=== PATIENT | male | born 1990 | race African-American/Black ===

== ENCOUNTER 2016-07-17 12:37 | Emergency (ER) | payer SELFPAY ==
--- NOTE | 2016-07-17 12:48 | ER Document Report ---
ED Medical Screen (RME) - General Stated Complaint: PAIN IN ARMPIT Time seen by provider: 12:48 Mode of Arrival: Ambulatory Information source: Patient Notes: 25-year-old male with a history of abscess under the right axilla started having swelling and pain to the area for 1 week. It is draining now after he popped it last night. I have greeted and performed a rapid initial assessment of this patient. A comprehensive ED assessment, evaluation of the patient, analysis of test results , and completion of the medical decision making process will be conducted by additional ED providers. TRAVEL OUTSIDE OF THE [place] IN LAST 30 DAYS: No - Related Data Allergies/Adverse Reactions: No Known Allergies Allergy (Verified 07/17/16 12:49) Past Medical History - Past Medical History Cardiac Medical History: Reports: Hx Hypertension - untreated Pulmonary Medical History: Reports: Hx Asthma - as infant Past Surgical History: Reports: Hx Appendectomy - Immunizations Immunizations up to date: Yes Hx Diphtheria, Pertussis, Tetanus Vaccination: Yes Physical Exam - Vital signs Vitals: Temp Pulse Resp BP Pulse Ox 97.7 F 60 14 153/113 H 100 07/17/16 12:44 07/17/16 12:44 07/17/16 12:44 07/17/16 12:44 07/17/16 12:44 Course - Vital Signs Vital signs: Temp Pulse Resp BP Pulse Ox 97.7 F 60 14 153/113 H 100 07/17/16 12:44 07/17/16 12:44 07/17/16 12:44 07/17/16 12:44 07/17/16 12:44
[2016-07-17] MEDS ORDERED: IBUPROFEN 800 MG TABLET PO ONE (14:02)
[2016-07-17] MEDS ORDERED: LIDOCAINE 1% INJ-PF (10 MG/ML) 30 ML SDV INJ ONE (14:29)
--- NOTE | 2016-07-17 15:04 | ER Document Report ---
ED General - General Chief Complaint: Abscess Stated Complaint: PAIN IN ARMPIT Time seen by provider: 14:30 Mode of Arrival: Ambulatory Information source: Patient Notes: 25-year-old male one-week history of pain and redness and swelling underneath right arm. Patient reports he had a 90 for an abscess there several months ago and thinks it has returned. He reports that he was able to squeeze some pus out of the area last night and thinks the swelling has gone down since then but has not resolved. He reports being in normal state of health otherwise recently. Physical Exam: General: Alert, appears well. HEENT: Normocephalic. Atraumatic. Oropharynx clear. Neck: Supple. Non-tender. Respiratory: No respiratory distress. Clear and equal breath sounds bilaterally. Cardiovascular: Regular rate and rhythm. Abdominal: Normal Inspection. Soft, non-tender. No distension. Normal Bowel Sounds. Back: Non-tender. No deformity or step off. Extremities: Moves all four extremities. Upper extremities: Normal inspection. Non-tender. Normal color. Normal ROM. Normal temperature. Lower extremities: Normal inspection. Non-tender. No edema. Normal color. Normal ROM. Normal temperature. Neurological: Speech clear mentation normal Psychological: Normal affect. Normal Mood. Skin: Warm. Dry. Normal color. Right axilla has a linear area of erythema redness swelling induration and tenderness consistent with abscess. The central 5 mm of this area expresses a mixture of serous and purulent material with mild palpation. TRAVEL OUTSIDE OF THE [place] IN LAST 30 DAYS: No - Related Data Allergies/Adverse Reactions: No Known Allergies Allergy (Verified 07/17/16 12:49) Past Medical History - General Information source: Patient - Social History Smoking Status: Current Every Day Smoker Family History: Reviewed & Not Pertinent Patient has suicidal ideation: No Patient has homicidal ideation: No - Past Medical History Cardiac Medical History: Reports: Hx Hypertension - untreated Pulmonary Medical History: Reports: Hx Asthma - as Renal/ Medical History: Denies: Hx Peritoneal Dialysis Past Surgical History: Reports: Hx Appendectomy - Immunizations Immunizations up to date: Yes Hx Diphtheria, Pertussis, Tetanus Vaccination: Yes Review of Systems - Review of Systems Constitutional: denies: Chills, Fever EENT: denies: Ear pain, Throat pain Cardiovascular: denies: Chest pain Respiratory: denies: Cough Gastrointestinal: denies: Abdominal pain, Nausea, Vomiting Genitourinary: denies: Burning Musculoskeletal: denies: Back pain Skin: See HPI Hematologic/Lymphatic: Swollen glands Neurological/Psychological: denies: Weakness, Numbness Physical Exam - Vital signs Vitals: Temp Pulse Resp BP Pulse Ox 97.7 F 60 14 153/113 H 100 07/17/16 12:44 07/17/16 12:44 07/17/16 12:44 07/17/16 12:44 07/17/16 12:44 Course - Re-evaluation Re-evalutation: 07/17/16 15:07 Right axillary abscess drained without difficulty patient will return in 2 days for packing removal and possible replacement. Of concerns about a coexisting cellulitis and he'll be placed on Keflex and Bactrim for that - Vital Signs Vital signs: Temp Pulse Resp BP Pulse Ox 97.7 F 60 14 153/113 H 100 07/17/16 12:44 07/17/16 12:44 07/17/16 12:44 07/17/16 12:44 07/17/16 12:44 Procedures - Incision and Drainage Right Shoulder Type: Simple Anesthetic type: 1% Lidocaine mL's of anesthetic: 2 Blade size: 11 I&D procedure: Betadine prep applied, Shurclens applied, Iodoform packing placed Incision Method: Incision made by scalpel Amount/type of drainage: 2cc thick purulent material Notes: 07/17/16 15:06 After local anesthetic and sterile prep incision was made overlying the area where drainage was already present. Incision was enlarged and abscess cavity was probed and explored with blunt dissection with return of purulent material and blood. Abscess cavity seems to track superiorly this area was also probed packing was then placed. Discharge - Discharge Clinical Impression: Abscess Condition: Stable Disposition: HOME, SELF-CARE Instructions: Post Incision and Drainage, Abscess ([facility]) Additional Instructions: Return to [facility] emergency department in 2 days for packing removal Prescriptions: Cephalexin Monohydrate [Keflex 500 mg Capsule] 500 mg PO QID #40 capsule Sulfamethoxazole/Trimethoprim [Bactrim Ds Tablet] 1 each PO BID #20 tablet
[2016-07-17 15:19] VITALS: BP 164/102
== END 2016-07-17 15:30 | disposition home or self-care (01) ==
LOC: ER 12:37
PROC: 0H9BXZZ Drainage of Right Upper Arm Skin, External Approach (ICD-10-PCS; principal; 2016-07-17)
DX: L02.413 Cutaneous abscess of right upper limb (principal); F17.210 Nicotine dependence, cigarettes, uncomplicated
CPT/HCPCS: 99283; 10060; J3490

== ENCOUNTER 2016-07-19 15:27 | Emergency (ER) | payer SELFPAY ==
--- NOTE | 2016-07-19 15:32 | ER Document Report ---
ED Medical Screen (RME) - General Stated Complaint: WOUND CHECK Notes: Patient is a 25-year-old male who presents to the emergency department for wound check. Have the abscess drained 2 days ago. Needs packing removed and evaluated. I have greeted and performed a rapid initial assessment of this patient. A comprehensive ED assessment and evaluation of the patient, analysis of test results and completion of the medical decision making process will be conducted by additional ED providers. TRAVEL OUTSIDE OF THE [place] IN LAST 30 DAYS: No - Related Data Allergies/Adverse Reactions: No Known Allergies Allergy (Verified 07/19/16 15:30) Past Medical History - Past Medical History Cardiac Medical History: Reports: Hx Hypertension - untreated Pulmonary Medical History: Reports: Hx Asthma - as infant Renal/ Medical History: Denies: Hx Peritoneal Dialysis Past Surgical History: Reports: Hx Appendectomy - Immunizations Immunizations up to date: Yes Hx Diphtheria, Pertussis, Tetanus Vaccination: Yes
[2016-07-19 17:25] VITALS: BP 162/98
--- NOTE | 2016-07-19 17:25 | ER Document Report ---
ED Suture/Wound Recheck - General Chief Complaint: Wound Recheck Stated Complaint: WOUND CHECK Time seen by provider: 17:00 Mode of Arrival: Ambulatory Information source: Patient Notes: 25-year-old male presents to ED for recheck of the abscess to his right axilla. He had an I&D done 2 days ago with packing in these to be removed and replaced TRAVEL OUTSIDE OF THE [place] IN LAST 30 DAYS: No - HPI Previous ED treatment: I&D of abscess Quality of pain: Sharp Severity: Moderate Pain Level: 3 Symptoms since procedure: Drainage Exacerbated by: Movement Relieved by: Denies - Related Data Allergies/Adverse Reactions: acetaminophen [From Percocet] Allergy (Verified 07/19/16 15:33) oxycodone [From Percocet] Allergy (Verified 07/19/16 15:33) Past Medical History - General Information source: Patient - Social History Smoking Status: Never Smoker Cigarette use (# per day): No Chew tobacco use (# tins/day): No Smoking Education Provided: No Frequency of alcohol use: None Drug Abuse: None Family History: Reviewed & Not Pertinent Patient has suicidal ideation: No Patient has homicidal ideation: No - Past Medical History Cardiac Medical History: Reports: Hx Hypertension - untreated Pulmonary Medical History: Reports: Hx Asthma - as EENT Medical History: Reports: None Neurological Medical History: Reports: None Endocrine Medical History: Reports: None Renal/ Medical History: Reports: None Malignancy Medical History: Reports None GI Medical History: Reports: None Musculoskeltal Medical History: Reports None Skin Medical History: Reports None Psychiatric Medical History: Reports: None Traumatic Medical History: Reports: None Infectious Medical History: Reports: None Past Surgical History: Reports: Hx Appendectomy - Immunizations Immunizations up to date: Yes Hx Diphtheria, Pertussis, Tetanus Vaccination: Yes Review of Systems - Review of Systems Constitutional: No symptoms reported EENT: No symptoms reported Cardiovascular: No symptoms reported Respiratory: No symptoms reported Gastrointestinal: No symptoms reported Genitourinary: No symptoms reported Male Genitourinary: No symptoms reported Musculoskeletal: No symptoms reported Skin: Other - Recheck abscess to right axilla Hematologic/Lymphatic: No symptoms reported Neurological/Psychological: No symptoms reported Physical Exam - Vital signs Vitals: Temp Pulse Resp BP Pulse Ox 97.7 F 77 16 143/102 H 99 07/19/16 15:32 07/19/16 15:32 07/19/16 15:32 07/19/16 15:32 07/19/16 15:32 Interpretation: Normal Notes: I rechecked vital signs blood pressure was 162/98 O2 sat was 99% pulse was 57 temperature was 97.9 - General General appearance: Appears well, Alert - HEENT Head: Normocephalic, Atraumatic Eyes: Normal Pupils: PERRL - Respiratory Respiratory status: No respiratory distress Chest status: Nontender Breath sounds: Normal Chest palpation: Normal - Cardiovascular Rhythm: Regular Heart sounds: Normal auscultation Murmur: No - Abdominal Inspection: Normal Distension: No distension Bowel sounds: Normal Tenderness: Nontender Organomegaly: No organomegaly - Back Back: Normal, Nontender - Extremities General upper extremity: Normal inspection, Nontender, Normal color, Normal ROM , Normal temperature General lower extremity: Normal inspection, Nontender, Normal color, Normal ROM , Normal temperature, Normal weight bearing. No: Danny's sign - Neurological Neuro grossly intact: Yes Cognition: Normal Orientation: AAOx4 [place] Coma Scale Eye Opening: Spontaneous [place] Coma Scale Verbal: Oriented [place] Coma Scale Motor: Obeys Commands [place] Coma Scale Total: 15 Speech: Normal Motor strength normal: LUE, RUE, LLE, RLE Sensory: Normal - Psychological Associated symptoms: Normal affect, Normal mood - Skin Skin Temperature: Warm Skin Moisture: Dry Skin Color: Normal Skin irregularity: Abscess - Right axilla. Still open from a couple days ago still has copious amounts of drainage Course - Re-evaluation Re-evalutation: 07/19/16 17:26 Abscess to right axilla irrigated with 30 mL of normal saline, repacked with 1/ 4 inch iodoform gauze. Dressed with sterile gauze and tape. Patient instructed to follow-up in 48-72 hours to have this reexamined and possibly repacked. Patient instructed that he can follow up with his primary doctor or at the emergency room to have this procedure done. Patient instructed to redress the wound at least daily and any time it is soiled. - Vital Signs Vital signs: Temp Pulse Resp BP Pulse Ox 97.9 F 57 L 16 162/98 H 99 07/19/16 17:20 07/19/16 17:20 07/19/16 15:32 07/19/16 17:20 07/19/16 17:20 Discharge - Discharge Clinical Impression: Abscess re-check Condition: Stable Disposition: HOME, SELF-CARE Additional Instructions: ABSCESS: You have an abscess (boil). This a pus-forming infection, usually due to staph. Some boils may be left to drain on their own, but most require lancing. From the time the tender lump first appears, it may be three or four days before the abscess is ready to lanie. Local heat and rest help at this stage of treatment. An antibiotic may prevent spread of the infection. Once the abscess is opened, packing may be placed into it. This is done so pus is not sealed inside by premature closure of the cavity. The packing will be removed at your follow-up visit or you may be advised to remove it yourself at home. Sometimes this packing must be replaced a few times during healing. The wound will heal with surprisingly little scar. Depending on the size and location of an abscess, healing can take one to four weeks. You may shower and wash the area around the incision site two or three times a day. Antibiotics may be prescribed, but are usually not necessary after an abscess has been drained. If you develop fever, chills, worsening pain, or increasing swelling in the area, call the doctor or return immediately. Continue your medications as prescribed. Return to emergency room or your primary doctor to have wound rechecked and possibly repacked in 2-3 days. FOLLOW-UP CARE: Most simple abscesses will not require a follow up visit. If you had packing placed in the abscess, remove it as instructed by the physician. If you have been referred to a physician for follow-up care, call the physicians office for an appointment as you were instructed or within the next two days. If you experience worsening or a significant change in your symptoms, return to the Emergency Department at any time for re-evaluation. Forms: Elevated Blood Pressure, Return to Work Referrals: NIC NOLEN MD [Primary Care Provider] - Follow up as needed
== END 2016-07-19 18:05 | disposition home or self-care (01) ==
LOC: ER 15:27
DX: L02.411 Cutaneous abscess of right axilla (principal)
CPT/HCPCS: 99282

== ENCOUNTER 2017-05-20 05:46 | Emergency (ER) | payer OTHER ==
[2017-05-20] MEDS ORDERED: IBUPROFEN 800 MG TABLET PO ONE (06:20)
[2017-05-20] MEDS ORDERED: DIPH/PERTUSS(ACELL)/TETANUS VAC/PF 0.5 ML SYR (>=10YO) IM ONE (06:20)
[2017-05-20] MEDS ORDERED: ONDANSETRON ODT 4 MG TAB (6 TAB/ER DISP) PO PRN (06:21)
[2017-05-20] MEDS ORDERED: HYDROCODONE/ACETAMINOPHEN 5-325 MG (6 TAB/ER DISP) PO PRN (06:21)
[2017-05-20] MEDS ORDERED: BACITRACIN ZINC OINTMENT 15 GM TP ONE (06:21)
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
[2017-05-20 07:02] VITALS: BP 151/102
== END 2017-05-20 07:08 | disposition home or self-care (01) ==
LOC: ER 05:46
DX: T24.212A Burn of second degree of left thigh, initial encounter (principal); X10.0XXA Contact with hot drinks, initial encounter; Y93.89 Activity, other specified; Y92.009 Unspecified place in unspecified non-institutional (private) residence as the place of occurrence of the external cause; I10 Essential (primary) hypertension; Z88.6 Allergy status to analgesic agent; Z88.5 Allergy status to narcotic agent
CPT/HCPCS: 99283; 90471; 90715; J3490

== ENCOUNTER 2017-05-24 11:42 | Emergency (ER) | payer OTHER ==
[2017-05-24] MEDS ORDERED: ONDANSETRON 4 MG TAB.RAPDIS PO ONE (12:22)
[2017-05-24] MEDS ORDERED: DICYCLOMINE HCL 20 MG TABLET PO ONE (12:22)
--- NOTE | 2017-05-24 12:27 | ER Document Report ---
ED General - General Chief Complaint: Nausea/Vomiting/Diarrhea Stated Complaint: ABDOMINAL PAIN,VOMITING,DIARRHEA Time Seen by Provider: 05/24/17 12:16 Notes: 26-year-old male here with complaints of nausea vomiting diarrhea abdominal cramping that started earlier this morning. The he ate some fish and does not know if this fish may have been the source of his symptoms. His father is also sick with the same exact symptoms. He denies any fevers or chills. TRAVEL OUTSIDE OF THE [place] IN LAST 30 DAYS: No - Related Data Allergies/Adverse Reactions: acetaminophen [From Percocet] Allergy (Verified 05/24/17 11:42) oxycodone [From Percocet] Allergy (Verified 05/24/17 11:42) Past Medical History - Social History Smoking Status: Current Every Day Smoker Chew tobacco use (# tins/day): No Frequency of alcohol use: Occasional Drug Abuse: Marijuana Family History: Reviewed & Not Pertinent Patient has suicidal ideation: No Patient has homicidal ideation: No - Past Medical History Cardiac Medical History: Reports: Hx Hypertension - untreated Pulmonary Medical History: Reports: Hx Asthma - as Renal/ Medical History: Denies: Hx Peritoneal Dialysis Past Surgical History: Reports: Hx Appendectomy - Immunizations Immunizations up to date: Yes Hx Diphtheria, Pertussis, Tetanus Vaccination: Yes Review of Systems - Review of Systems Notes: See history of present illness for pertinent positive review of systems; otherwise all review of systems have been reviewed and are negative Physical Exam - Vital signs Vitals: Temp Pulse Resp BP Pulse Ox 97.7 F 79 28 H 149/113 H 100 05/24/17 11:57 05/24/17 11:57 05/24/17 11:57 05/24/17 11:57 05/24/17 11:57 - Notes Notes: PHYSICAL EXAMINATION: GENERAL: Well-appearing and in no acute distress. HEAD: Atraumatic, normocephalic. EYES: Pupils equal round and reactive to light, extraocular movements intact, sclera anicteric, conjunctiva are normal. ENT: nares patent, oropharynx clear without exudates. Moist mucous membranes. NECK: Normal range of motion, supple without lymphadenopathy LUNGS: CTAB and equal. No wheezes rales or rhonchi. HEART: Regular rate and rhythm without murmurs ABDOMEN: Soft, no tenderness. No guarding, no rebound. No peritoneal signs EXTREMITIES: Normal range of motion, no pitting edema. No cyanosis. NEUROLOGICAL: Cranial nerves grossly intact. Normal sensory/motor exams. PSYCH: Normal mood, normal affect. SKIN: Warm, Dry, normal turgor, no rashes or lesions noted Course - Re-evaluation Re-evalutation: 05/24/17 12:26 MEDICAL DECISION MAKING: Concern for gastroenteritis, most likely viral Low clinical suspicion for acute emergent pathology i.e. cholecystitis appendicitis Normal abdominal exam without tenderness Will give Bentyl Zofran and prescription Bentyl Zofran Phenergan Instructed follow-up PCP next day or few Patient understands and agrees to the plan of care - Vital Signs Vital signs: Temp Pulse Resp BP Pulse Ox 97.7 F 79 28 H 149/113 H 100 05/24/17 11:57 05/24/17 11:57 05/24/17 11:57 05/24/17 11:57 05/24/17 11:57 Discharge - Discharge Clinical Impression: Gastroenteritis Condition: Good Disposition: HOME, SELF-CARE Additional Instructions: Use the prescribed medications as needed for vomiting and pain. You were seen in the emergency department at [facility]. If you were given any sedating medications, be sure not to operate heavy machinery (example - driving ) and be sure you are not too sedated to walk appropriately. Please followup with your primary physician in the next few days for further management/ evaluation. Please return to the emergency department for worsening of symptoms or any symptom that you deem to be concerning or life-threatening. Thank you for allowing us to be part of your care. Prescriptions: Ondansetron [Zofran Odt 4 mg Tablet] 1 - 2 tab PO Q4HP PRN #10 tab.rapdis PRN Reason: Dicyclomine HCl [Bentyl 20 mg Tablet] 20 mg PO QID #40 tablet Promethazine HCl [Phenergan 25 mg Supp.rect] 1 supp [place] Q6H #12 supp.rect
[2017-05-24 12:36] VITALS: BP 149/92
== END 2017-05-24 12:36 | disposition home or self-care (01) ==
LOC: ER 11:42
DX: K52.9 Noninfective gastroenteritis and colitis, unspecified (principal); R11.2 Nausea with vomiting, unspecified; R10.9 Unspecified abdominal pain; F17.200 Nicotine dependence, unspecified, uncomplicated
CPT/HCPCS: 99283; J3490; S0119

== ENCOUNTER 2017-07-05 19:29 | Emergency (ER) | payer OTHER ==
[2017-07-05] MEDS ORDERED: LIDOCAINE 1% INJ-PF (10 MG/ML) 30 ML SDV INJ ONE (20:10)
[2017-07-05] MEDS ORDERED: LIDOCAINE 4%/TETRACAINE 0.5%/EPI 0.18% 5 ML TOPICAL SOLN TOP ONE (20:10)
--- NOTE | 2017-07-05 20:10 | ER Document Report ---
ED ENT - General Chief Complaint: Ear Pain Stated Complaint: EAR LOB SWEELING Time Seen by Provider: 07/05/17 20:03 Mode of Arrival: Ambulatory Information source: Patient Notes: Patient is a 26-year-old male who presents to the ER today for right earlobe swelling and pain. Patient states that he just woke up with it this morning. He denies any fever, chills, history of abscesses, anything biting him that he knows of. He denies any history of MRSA. TRAVEL OUTSIDE OF THE [place] IN LAST 30 DAYS: No - Related Data Allergies/Adverse Reactions: acetaminophen [From Percocet] Allergy (Verified 05/24/17 11:42) oxycodone [From Percocet] Allergy (Verified 05/24/17 11:42) Past Medical History - General Information source: Patient - Social History Smoking Status: Never Smoker Family History: Reviewed & Not Pertinent - Past Medical History Cardiac Medical History: Reports: Hx Hypertension - untreated Pulmonary Medical History: Reports: Hx Asthma - as Renal/ Medical History: Denies: Hx Peritoneal Dialysis Past Surgical History: Reports: Hx Appendectomy - Immunizations Immunizations up to date: Yes Hx Diphtheria, Pertussis, Tetanus Vaccination: Yes Review of Systems - Review of Systems Constitutional: No symptoms reported EENT: See HPI Cardiovascular: No symptoms reported Respiratory: No symptoms reported Gastrointestinal: No symptoms reported Genitourinary: No symptoms reported Male Genitourinary: No symptoms reported Musculoskeletal: No symptoms reported Skin: No symptoms reported Hematologic/Lymphatic: No symptoms reported Neurological/Psychological: No symptoms reported Physical Exam - Vital signs Vitals: Temp Pulse Resp BP Pulse Ox 98.6 F 58 L 16 140/92 H 98 07/05/17 19:46 07/05/17 19:46 07/05/17 19:46 07/05/17 19:46 07/05/17 19:46 - Notes Notes: PHYSICAL EXAMINATION: GENERAL: Well-appearing and in no acute distress. HEAD: Atraumatic, normocephalic. EYES: Pupils equal round and reactive to light, extraocular movements intact, sclera anicteric, conjunctiva are normal. ENT: Large earlobe abscess, fluctuant, slightly erythematous, encompassing the entire right earlobe NECK: Normal range of motion, supple without lymphadenopathy LUNGS: CTAB and equal. No wheezes rales or rhonchi. HEART: Regular rate and rhythm without murmurs EXTREMITIES: Normal range of motion, no pitting edema. No cyanosis. NEUROLOGICAL: Cranial nerves grossly intact. Normal sensory/motor exams. PSYCH: Normal mood, normal affect. SKIN: Warm, Dry, normal turgor, see ENT above Course - Vital Signs Vital signs: Temp Pulse Resp BP Pulse Ox 98.6 F 58 L 16 140/92 H 98 07/05/17 19:46 07/05/17 19:46 07/05/17 19:46 07/05/17 19:46 07/05/17 19:46 Procedures - Incision and Drainage Right Head Time completed: 21:00 Type: Simple Anesthetic type: 1% Lidocaine mL's of anesthetic: 2 Blade size: 11 I&D procedure: Betadine prep applied Incision Method: Incision made by scalpel Amount/type of drainage: pus and blood Discharge - Discharge Clinical Impression: Abscess, earlobe Qualifiers: Laterality: right Qualified Code(s): H60.01 - Abscess of right external ear Condition: Stable Disposition: HOME, SELF-CARE Additional Instructions: Return immediately for any new or worsening symptoms. Follow up with primary care provider, call tomorrow to make followup appointment. Prescriptions: Sulfamethoxazole/Trimethoprim [Bactrim Ds Tablet] 1 each PO BID #20 tablet Forms: Return to Work
[2017-07-05] MEDS ORDERED: HYDROCODONE/ACETAMINOPHEN 5-325 MG (6 TAB/ER DISP) PO PRN (21:01)
[2017-07-05 21:24] VITALS: BP 120/81
== END 2017-07-05 21:36 | disposition home or self-care (01) ==
LOC: ER 19:29
PROC: 0990XZZ Drainage of Right External Ear, External Approach (ICD-10-PCS; principal; 2017-07-05)
DX: H60.01 Abscess of right external ear (principal); H92.01 Otalgia, right ear; H93.8X1 Other specified disorders of right ear
CPT/HCPCS: 99282; 69000; J3490

== ENCOUNTER 2017-10-26 13:17 | Emergency (ER) | payer OTHER ==
[2017-10-26] MEDS ORDERED: ACETAMINOPHEN 325 MG TABLET PO ONE (14:03)
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
[2017-10-26 15:43] VITALS: BP 160/101
== END 2017-10-26 15:47 | disposition home or self-care (01) ==
LOC: ER 13:17
DX: M54.5 Low back pain (principal); M25.551 Pain in right hip; M25.552 Pain in left hip; R10.30 Lower abdominal pain, unspecified; V49.40XA Driver injured in collision with unspecified motor vehicles in traffic accident, initial encounter; F17.210 Nicotine dependence, cigarettes, uncomplicated; I10 Essential (primary) hypertension; Z88.5 Allergy status to narcotic agent
CPT/HCPCS: 72110; 73522; 99283

== ENCOUNTER 2018-06-02 06:34 | Emergency (ER) | payer OTHER ==
[2018-06-02 07:13] VITALS: BP 153/112
[2018-06-02] MEDS ORDERED: LIDOCAINE 1% INJ-PF (10 MG/ML) 30 ML SDV INJ ONE (07:21)
--- NOTE | 2018-06-02 07:27 | ER Document Report ---
HPI - HPI Time Seen by Provider: 06/02/18 07:11 Pain Level: 3 Notes: Patient is a 27-year-old male with no significant past medical history who presents emergency department complaining of an abscess to his right axilla over the last several days. Patient states that he has had an abscess in this area before and has needed it drained. No history of MRSA. He has been eating and drinking without difficulty. He is urinating normally and having normal bowel movements. The pain does not radiate. He has not noticed any drainage or red streaking. Denies IV drug abuse. Denies any headache, fever, neck pain, URI, sore throat, chest pain, palpitations, syncope, cough, shortness of breath, wheeze, dyspnea, abdominal pain, nausea/vomiting/diarrhea, urinary retention, dysuria, hematuria. - ROS Systems Reviewed and Negative: Yes All other systems reviewed and negative Past Medical History - Social History Smoking Status: Never Smoker Family History: Reviewed & Not Pertinent Patient has suicidal ideation: No Patient has homicidal ideation: No - Past Medical History Cardiac Medical History: Reports: Hx Hypertension - untreated Pulmonary Medical History: Reports: Hx Asthma - as infant Renal/ Medical History: Denies: Hx Peritoneal Dialysis Past Surgical History: Reports: Hx Appendectomy - Immunizations Immunizations up to date: Yes Hx Diphtheria, Pertussis, Tetanus Vaccination: Yes Vertical Provider Document - CONSTITUTIONAL Agree With Documented VS: Yes Notes: PHYSICAL EXAMINATION: GENERAL: Well-appearing, well-nourished and in no acute distress. LUNGS: Breath sounds clear to auscultation bilaterally and equal. No wheezes rales or rhonchi. HEART: Regular rate and rhythm without murmurs, rubs, gallops. Musculoskeletal: Rt UE: FROM to passive/active. Strength 5+/5. Extremities: No cyanosis, clubbing, or edema b/l. Peripheral pulses 2+. Capillary refill less than 3 seconds. NEUROLOGICAL: Normal speech, normal gait. Normal sensory, motor exams PSYCH: Normal mood, normal affect. SKIN: Rt axilla: there is a moderate sized abscess 4cm diameter noted with associated fluctuance, erythema, warmth, surrounding induration, and tenderness. No active purulence. No streaks. - INFECTION CONTROL TRAVEL OUTSIDE OF THE [place] IN LAST 30 DAYS: No Course - Re-evaluation Re-evalutation: 06/02/18 08:18 Patient is an afebrile, well-hydrated 27-year-old male who presents the emergency department with an abscess to his right axilla. Vitals are acceptable without significant tachycardia, tachypnea, or hypoxia. PE is otherwise unremarkable. Incision and drainage was performed successfully without any complications and packing was placed. Patient tolerated procedure well. Wound culture was obtained. Wound dressing placed and wound instructions reviewed. No further labs or imaging warranted. Low suspicion for any sepsis, meningitis, necrotizing fasciitis, history of, or other systemic emergent condition. Patient to monitor symptoms for acute changes and seek medical attention if so. I will send him home with a prescription for Keflex and Bactrim as well as a [employer] dispense pack. Recheck with your PCM in 2-3 days as reviewed. Return to the ED with any other worsening/concerning symptoms. Patient is in agreement. - Vital Signs Vital signs: Temp Pulse Resp BP Pulse Ox 98.6 F 75 20 153/112 H 99 06/02/18 06:47 06/02/18 06:47 06/02/18 06:47 06/02/18 06:47 06/02/18 06:47 Procedures - Incision and Drainage Right Axilla Time completed: 08:15 Type: Simple Anesthetic type: 1% Lidocaine mL's of anesthetic: 8 Blade size: 11 I&D procedure: Iodoform packing placed, Sterile dressing applied, Other - Chlorhexadine/saline Incision Method: Incision made by scalpel Amount/type of drainage: moderate purulent Discharge - Discharge Clinical Impression: Abscess Condition: Stable Disposition: HOME, SELF-CARE Instructions: Post Incision and Drainage, Cephalexin ([facility]), Trimethoprim-Sulfa ([facility]), Abscess ([facility]) Additional Instructions: Do not shower or bathe for 24 hours. After 24 hours you may shower but no submersion of the wound under water. Keep the original dressing on the wound for 24 hours unless the drainage soaks through. Change the dressing daily thereafter and use a small amount of triple antibiotic ointment over the open wound. See your PCM in 2-3 days for recheck and continue direction for wound packing. Monitor for any signs of worsening pain or redness, streaks, and/or fever. Return to the ED if noticing any of the above symptoms or as needed. Take medications as directed. Prescriptions: Cephalexin Monohydrate [Keflex 500 mg Capsule] 500 mg PO TID #30 capsule Sulfamethoxazole/Trimethoprim [Bactrim Ds Tablet] 1 each PO BID #20 tablet Forms: Elevated Blood Pressure Referrals: NIC NOLEN MD [Primary Care Provider] - 06/05/18
[2018-06-02] MEDS ORDERED: HYDROCODONE/ACETAMINOPHEN 5-325 MG (6 TAB/ER DISP) PO PRN (08:21)
[2018-06-02] MEDS ORDERED: MORPHINE SULFATE IR 15 MG TABLET PO ONE (08:22)
== END 2018-06-02 08:35 | disposition home or self-care (01) ==
LOC: ER 06:34
PROC: 0H9BXZZ Drainage of Right Upper Arm Skin, External Approach (ICD-10-PCS; principal; 2018-06-02)
DX: L02.411 Cutaneous abscess of right axilla (principal); I10 Essential (primary) hypertension; J45.909 Unspecified asthma, uncomplicated
CPT/HCPCS: 99283; 87070; 87205; 10060; A6266; J3490; 87077; 87186

== ENCOUNTER 2018-06-05 10:22 | Emergency (ER) | payer SELFPAY ==
[2018-06-05 10:29] VITALS: BP 151/100
--- NOTE | 2018-06-05 10:56 | ER Document Report ---
HPI - HPI Time Seen by Provider: 06/05/18 10:46 Pain Level: 3 Notes: Patient is a 27-year-old male who presents requesting packing removal from his right axilla. He states packing was placed approximately 3 days ago. He reports changing his dressing approximately once daily and it has moderate drainage. Denies any fever. - CONSTITUTIONAL Constitutional: DENIES: Fever, Chills - MUSCULOSKELETAL Musculoskeletal: REPORTS: Extremity pain - Abscess wound under right arm Past Medical History - General Information source: Patient - Social History Smoking Status: Current Every Day Smoker Frequency of alcohol use: Rare Drug Abuse: Marijuana Family History: Reviewed & Not Pertinent Patient has suicidal ideation: No Patient has homicidal ideation: No - Past Medical History Cardiac Medical History: Reports: Hx Hypertension - untreated Pulmonary Medical History: Reports: Hx Asthma - as infant Renal/ Medical History: Denies: Hx Peritoneal Dialysis Past Surgical History: Reports: Hx Appendectomy - Immunizations Immunizations up to date: Yes Hx Diphtheria, Pertussis, Tetanus Vaccination: Yes Vertical Provider Document - CONSTITUTIONAL Notes: PHYSICAL EXAMINATION: GENERAL: Well-appearing, well-nourished and in no acute distress. HEAD: Atraumatic, normocephalic. EYES: Pupils equal round extraocular movements intact, conjunctiva are normal. ENT: Nares patent NECK: Normal range of motion LUNGS: No respiratory distress Musculoskeletal: Normal range of motion NEUROLOGICAL: Normal speech, normal gait. PSYCH: Normal mood, normal affect. SKIN: Abscess to right axilla, open and draining, packing in place. No surrounding erythema. - INFECTION CONTROL TRAVEL OUTSIDE OF THE [place] IN LAST 30 DAYS: No Course - Re-evaluation Re-evalutation: 06/05/18 10:54 Packing removed. Abscess remains open but there is no fluctuance. Patient encouraged to do warm compresses 3-4 times a day and continue taking antibiotics. ED return precautions given. - Vital Signs Vital signs: Temp Pulse Resp BP Pulse Ox 97.8 F 57 L 14 151/100 H 100 06/05/18 10:28 06/05/18 10:28 06/05/18 10:28 06/05/18 10:28 06/05/18 10:28 Discharge - Discharge Clinical Impression: Abscess re-check, Encounter for abscess packing removal Condition: Stable Disposition: HOME, SELF-CARE Additional Instructions: The packing was removed from your abscess today. Please continue taking all antibiotics as prescribed. Apply warm compresses to the area at least 3-4 times daily this will hopefully help keep it draining. Take ibuprofen or acetaminophen for pain. Forms: Return to Work Referrals: NIC NOLEN MD [Primary Care Provider] - Follow up as needed
== END 2018-06-05 10:55 | disposition home or self-care (01) ==
LOC: ER 10:22
DX: L02.411 Cutaneous abscess of right axilla (principal); M79.601 Pain in right arm; F17.200 Nicotine dependence, unspecified, uncomplicated; I10 Essential (primary) hypertension; J45.909 Unspecified asthma, uncomplicated
CPT/HCPCS: 99282